=== PATIENT | male | born 1950 | race Caucasian/White ===

== ENCOUNTER → 2021-11-29 | Emergency (ER) | payer MEDICARE ==
[2021-11-30 14:54] LABS: ESTIMATED GFR 65 mL/min (>60)
== END ==
LOC: FB.EMPHLTH 10:30 → FB.ED 10:30
DX: R50.9 Fever, unspecified (principal); R53.81 Other malaise; R63.0 Anorexia; Z20.822 Contact with and (suspected) exposure to COVID-19
CPT/HCPCS: 36415; 80053; 81001; 85025; 86140; 96361; 96374; 96375; 99284-25; U0002

== ENCOUNTER 2022-11-17 09:49 | Emergency (ER) | payer MEDICARE ==
[2022-11-17] MEDS ORDERED: Sodium Chloride 0.9% 10 ML Syringe FLUSH PRN (09:51)
[2022-11-17] MEDS ORDERED: Ondansetron 4 MG/2 ML SDV IVPUSH ONE (09:54)
[2022-11-17] MEDS ORDERED: Sodium Chloride 0.9% 1,000 ML IV SCH (10:00)
[2022-11-17 10:19] LABS: BASOPHILS PERCENT AUTO 0.2 % (0.3-3.8); EOSINOPHILS PERCENT AUTO 0.6 % (0.1-6.8); HEMATOCRIT 39.5 % (38.3-50.1); HEMOGLOBIN 13.1 g/dL (12.9-17.7); LYMPHOCYTES ABSOLUTE AUTO 1.2 x10-3/uL (0.5-4.5); LYMPHOCYTES PERCENT AUTO 15.4 % (15.8-45.3); MEAN CORPUSCULAR HEMOGLOBIN 29.1 pg (27.0-33.3); MEAN CORPUSCULAR HGB CONC 33.3 g/dL (28.7-35.3); MEAN CORPUSCULAR VOLUME 87.6 fL (80.8-98.7); MEAN PLATELET VOLUME 9.1 fL (6.7-11.0); MONOCYTES ABSOLUTE AUTO 0.5 x10-3/uL (0.0-1.2); MONOCYTES PERCENT AUTO 6.7 % (5.5-15.2); NEUTROPHILS ABSOLUTE AUTO 5.9 x10-3/uL (1.7-6.9); NEUTROPHILS PERCENT AUTO 77.1 % (40.3-71.8); PLATELET COUNT,PLT 279 x10(3)uL (117-477); RED BLOOD CELL COUNT 4.51 x10(6)uL (3.90-5.90); RED CELL DISTRIBUTION WIDTH 13.8 % (12.4-15.0); WHITE BLOOD CELL COUNT,WBC 7.6 x10-3/uL (3.2-10.1)
[2022-11-17 10:21] LABS: BLOOD UREA NITROGEN,BUN 14 mg/dL (7-18); BUN/CREATININE RATIO 12.7 (9-20); CALCIUM 8.9 mg/dL (8.6-10.2); CARBON DIOXIDE,CO2 28 mmol/L (21-32); CHLORIDE,CL 101 mmol/L (100-110); CREATININE 1.1 mg/dL (0.70-1.30); ESTIMATED GFR 72 mL/min (>60); GLUCOSE RANDOM 107 mg/dL (80-116); POTASSIUM,K 3.9 mmol/L (3.5-5.3); SODIUM,NA 139 mmol/L (135-145)
[2022-11-17 10:27] LABS: ALANINE AMINOTRANSFERASE,ALT 48 U/L (12-36); ALBUMIN 3.4 g/dL (3.2-4.6); ALKALINE PHOSPHATASE 121 IU/L (56-112); ASPARTATE AMNIOTRANSFERASE,AST 25 IU/L (5-25); BILIRUBIN TOTAL 1.9 mg/dL (0.1-1.3); PROTEIN TOTAL,TP 6.9 g/dL (6.0-8.0)
[2022-11-17 10:34] LABS: TROPONIN I 7.6 pg/mL (4.0-60.3)
[2022-11-17 10:37] LABS: LACTIC ACID 0.5 mmol/L (0.4-2.0)
[2022-11-17 10:57] LABS: INFLUENZA A NAA NEGATIVE (NEGATIVE); INFLUENZA B NAA NEGATIVE (NEGATIVE)
[2022-11-17] MEDS ORDERED: Prochlorperazine 10 MG/2 ML SDV IVPUSH ONE (11:20)
[2022-11-17] MEDS ORDERED: Meclizine 25 MG Tab PO ONE ×2 (11:20→12:06)
[2022-11-17 11:25] LABS: CORONAVIRUS COVID-19 NAA NEGATIVE (NEGATIVE)
[2022-11-17 11:43] LABS: APPEARANCE,URINE CLEAR (CLEAR); BACTERIA,URINE FEW (NS); BILIRUBIN,URINE NEGATIVE (NEGATIVE); COLOR,URINE YELLOW (YELLOW); GLUCOSE,URINE NORMAL (NORMAL); KETONES,URINE NEGATIVE (NEGATIVE); LEUKOCYTE ESTERASE,URINE NEGATIVE (NEGATIVE); NITRITE,URINE NEGATIVE (NEGATIVE); OCCULT BLOOD,URINE NEGATIVE (NEGATIVE); PROTEIN,URINE NEGATIVE (NEGATIVE); SQUAMOUS EPITHELIAL CELLS,UR OCCASIONAL (NS,R,O); UROBILINOGEN,URINE NORMAL (NEGATIVE); WBC,URINE 0-5 (0-5)
[2022-11-17] MEDS ORDERED: LORazepam 2 MG/ML SDV IVPUSH ONE (12:24)
== END 2022-11-17 16:05 | disposition home or self-care (01) ==
LOC: FB.ED 09:49
DX: H81.10 Benign paroxysmal vertigo, unspecified ear (principal); Z20.822 Contact with and (suspected) exposure to COVID-19; Z79.899 Other long term (current) drug therapy; Z88.2 Allergy status to sulfonamides; Z88.8 Allergy status to other drugs, medicaments and biological substances
CPT/HCPCS: 0240U; 71045; 80053; 81001; 83605; 83880; 84153; 84484; 85025; 93005; 96361; 96374; 96375; 99284-25; A9270-GY; J0780; J2060; J2405; J3490; J7030